=== PATIENT | female | born 1975 | race African-American/Black ===

== ENCOUNTER 2019-11-15 16:16 | Emergency (ER) | payer MEDICARE, SELFPAY ==
[2019-11-15 16:31] VITALS: BP 115/79; PULSE 99; RESP 20; TEMP 36.7; O2SAT 99
--- NOTE | 2019-11-15 16:39 | ED.SKABFB ---
HPI - Skin/Abscess/Foreign Bdy General Chief complaint: Skin/Abscess/Foreign Body Stated complaint: rash Time Seen by Provider: 11/15/19 16:39 Source: patient and RN notes reviewed History of Present Illness HPI narrative: Patient is a 44-year-old female who presents the urgent care with complaints of a painful rash to the left buttocks. Patient states she noticed it approximately 2 days ago and is became very painful. Patient states that she does noticed that her underwear line has been rubbing the area which is caused it to be more painful. Patient has MS and sits for long periods of time, and able to ambulate without assistance. Patient states that she has been under a lot of stress due to her chronic bronchitis and treatment for pneumonia. Patient states that she is recently been on a Z-Cj as well as currently taking Levaquin from her PCP. Patient states her upper respiratory symptoms have improved and she is not currently audibly wheezing. Patient denies of any fever. Denies of using any [id number] treatment to the rash. Patient denies any history of shingles. No other acute complaints. No acute distress noted. Patient read the plan of care. Related Data Home Medications Medication Instructions Recorded Confirmed Myrbetriq 50 mg PO DAILY 06/02/19 06/27/19 Toviaz 4 mg PO DAILY 06/02/19 06/27/19 amitriptyline 100 mg HS 06/02/19 06/27/19 cyclobenzaprine 10 mg TID PRN 06/02/19 06/27/19 trazodone 100 mg PRN PRN 06/02/19 06/27/19 fluticasone propion-salmeterol INHALATION 11/15/19 [Advair HFA] levofloxacin 11/15/19 mirabegron [Myrbetriq] mg PO 11/15/19 omeprazole 11/15/19 Allergies Allergy/AdvReac Type Severity Reaction Status Date / Time No Known Allergies Allergy Mild Verified 07/17/19 09:53 Review of Systems Review of Systems: Narrative: CONSTITUTIONAL: Denies fever, chills, or sweats. EYES: Denies visual changes, redness, or discharge. ENT: Denies rhinorrhea, congestion, sore throat, or otalgia. CARDIOVASCULAR: Denies chest pain, palpitations, or edema. RESPIRATORY: Denies cough or dyspnea. GASTROINTESTINAL: Denies abdominal pain, nausea, vomiting, or diarrhea. GENITOURINARY: Denies dysuria or hematuria. SKIN: Reports of a painful itchy rash to the left buttocks MUSCULOSKELETAL: Denies back pain, joint pain, or myalgia. NEUROLOGIC: Denies headache, numbness, or weakness. All other systems reviewed are negative, except as documented in HPI. [facility] Social History Social History Social History: She lives at home with her son, Yung, whom she designates as her emergency contact. She wishes to be a full code. 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 No alcohol, tobacco, or drug use. Smoking status: Never smoker Alcohol intake: never Substance use: never Gender identity (if verbalized by the patient): Female Spiritual care concerns: No Agree to blood products: Yes Comments At the time of my signature, I reviewed and agree with the nursing past medical, surgical, social, and family history. There is no relevant family history pertinent to the patient complaint. Exam Narrative: Exam Narrative: GENERAL: This is a well-nourished, well-developed patient, in no apparent distress. HEAD: normocephalic, atraumatic. EYES: PERRL. Sclera clear/white. Vision is grossly intact. EARS: External ears normal NOSE: External nose normal with no obvious nasal discharge THROAT: Mucous membranes moist, posterior pharynx clear. NECK: Neck supple RESPIRATORY: Tory wheezes throughout SKIN: Cluster of pustular lesions (6-8) noted to the left buttocks, very painful and sore to touch. warm, intact with no suspicious lesions or rash, good texture and turgor. NEURO: awake, alert, and oriented to person, place and time. There were no obvious focal neurologic abnormalities. Course Vital Signs Vital signs: Vital Signs Temperature 98.0 F 11/15/19 16:3
== END 2019-11-15 17:30 | disposition home or self-care (01) ==
PROVIDERS: Emergency Provider Nurse Practitioner Family
DX: B02.9 Zoster without complications (principal); G35 Multiple sclerosis
CPT/HCPCS: 99213; G0463

== ENCOUNTER 2019-12-11 18:25 | Emergency (ER) | payer MEDICARE, SELFPAY ==
--- NOTE | 2019-12-11 18:30 | ED.GENADULT ---
HPI - General Adult General Chief complaint: Skin/Abscess/Foreign Body Stated complaint: rash on right leg Time Seen by Provider: 12/11/19 18:30 Source: patient Mode of arrival: ambulatory Limitations: no limitations History of Present Illness HPI narrative: 44-year-old female patient presents to the [facility] with complaints of a cluster rash on the right leg that she noticed just a few hours ago. Patient states she actually did not even know she had it and that her brother pointed out. Patient states it was on the back of the right leg. Patient states that she did have an issue about a month or so ago with an issue of shingles outbreak. Patient states that has since resolved. Patient was concerned that this could be another shingles outbreaks. Patient denies any pain, itching. Denies any injury to the leg that she is aware of. Patient does have a history of MS which she does get infusions for typically every 6 months but due to the COVID pandemic she has not had an infusion over 9 months. Patient states that she does fall at times. Related Data Home Medications Medication Instructions Recorded Confirmed Myrbetriq 50 mg PO DAILY 06/02/19 06/27/19 Toviaz 4 mg PO DAILY 06/02/19 06/27/19 amitriptyline 100 mg HS 06/02/19 06/27/19 cyclobenzaprine 10 mg TID PRN 06/02/19 06/27/19 Vitamin D3 12/11/19 ascorbic acid (vitamin C) 12/11/19 cetirizine mg 12/11/19 multivitamin 12/11/19 trazodone 12/11/19 vitamin A 12/11/19 vitamin E 12/11/19 Allergies Allergy/AdvReac Type Severity Reaction Status Date / Time No Known Allergies Allergy Mild Verified 07/17/19 09:53 Review of Systems Review of Systems: Narrative: CONSTITUTIONAL: Denies fever, chills, or sweats. EYES: Denies visual changes, redness, or discharge. ENT: Denies rhinorrhea, congestion, sore throat, or otalgia. CARDIOVASCULAR: Denies chest pain, palpitations, or edema. RESPIRATORY: Denies cough or dyspnea. GASTROINTESTINAL: Denies abdominal pain, nausea, vomiting, or diarrhea. GENITOURINARY: Denies dysuria or hematuria. SKIN: Denies rash or itching. Positive rash to right lower leg MUSCULOSKELETAL: Denies back pain, joint pain, or myalgia. NEUROLOGIC: Denies headache, numbness, or weakness. PSYCHIATRIC: Denies anxiety or depression. [facility] Past Medical History Medical History Bronchitis (~05/2019) GERD (gastroesophageal reflux disease) Mitral valve prolapse Multiple sclerosis She is followed by neurologist associated with [facility], and received injections every 6 months. Pneumonia Urine incontinence Surgical History Surgical History H/O tubal ligation S/P laparoscopic cholecystectomy 06/29/19 Family History Family History Sibling Hypertension Cerebrovascular accident Father Hypertension Cerebrovascular accident Mother Hypertension Social History Social History Social History: She lives at home with her son, Yung, whom she designates as her emergency contact. She wishes to be a full code. 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 No alcohol, tobacco, or drug use. Smoking status: Never smoker Alcohol intake: never Substance use: never Gender identity (if verbalized by the patient): Female Spiritual care concerns: No Agree to blood products: Yes Comments At the time of my signature I agree with nursing past medical history, surgical, social, and family history. There is no relevant family history pertinent to the presenting complaint. Exam Narrative: Exam Narrative: GENERAL: Well-appearing, well-nourished, and in no acute distress. HEAD: Normocephalic, atraumatic. EYES: PERRLA and EOMI. ENT: Nares clear, no rhinorrhea or epistaxis. Mucous membranes moist. NECK: Supple. No ly
[2019-12-11 18:44] VITALS: BP 109/91; PULSE 88; RESP 18; TEMP 37.2; O2SAT 97
== END 2019-12-11 18:58 | disposition home or self-care (01) ==
PROVIDERS: Emergency Provider Nurse Practitioner Family
DX: R21 Rash and other nonspecific skin eruption (principal); G35 Multiple sclerosis
CPT/HCPCS: 99211; G0463

== ENCOUNTER → 2021-08-15 16:15 | Outpatient (CLI) | payer MEDICARE, SELFPAY ==
--- NOTE | ~2021-08-15 | XR_ITS ---
XR chest 2V DATE: 08/15/2021 16:34 INDICATION: Moderate persistent asthma TECHNIQUE: 2 views COMPARISON: 06/26/2019 two-view chest FINDINGS: Normal heart size. No hilar or mediastinal enlargement. No pulmonary infiltrate or consol idation, pulmonary vascular congestion or pleural effusion or pneumothorax. Status post cholecystectomy. IMPRESSION: No active cardiopulmonary disease Reviewed, dictated and finalized at location B. [employer]
== END ==
PROVIDERS: PCP Internal Medicine Pulmonary Disease; Visit Provider Internal Medicine Pulmonary Disease
DX: J45.40 Moderate persistent asthma, uncomplicated (principal); G35 Multiple sclerosis; R53.83 Other fatigue; E66.01 Morbid (severe) obesity due to excess calories; Z68.41 Body mass index [BMI] 40.0-44.9, adult; J30.1 Allergic rhinitis due to pollen; G47.10 Hypersomnia, unspecified; Z90.49 Acquired absence of other specified parts of digestive tract
CPT/HCPCS: 71046

== ENCOUNTER 2022-05-01 17:31 | Emergency (ER) | payer MEDICARE, SELFPAY ==
[2022-05-01 17:35] VITALS: BP 139/76; PULSE 104; RESP 20; TEMP 36.1; O2SAT 100
--- NOTE | 2022-05-01 18:04 | ED.EAR ---
HPI - Ear Problem General Chief complaint: Ear Stated complaint: ear infection Time Seen by Provider: 05/01/22 18:04 Source: patient, RN notes reviewed and old records reviewed Mode of arrival: ambulatory Limitations: no limitations History of Present Illness HPI Narrative: 46-year-old female presents to the [facility] with complaints of sinus pain, pressure, right ear pain and pressure. Patient has had sinus issues for a couple of weeks. Review ear pain since this morning. Has a history of MS. Uses a walker. MD Complaint: ear pain Related Data Home Medications Medication Instructions Recorded Confirmed amitriptyline 100 mg tablet 100 mg HS 06/02/19 05/01/22 cyclobenzaprine 10 mg tablet 10 mg TID PRN Muscle Pain 06/02/19 05/01/22 mirabegron 50 mg tablet,extended 50 mg PO DAILY 06/02/19 05/01/22 release 24 hr (Myrbetriq) cetirizine 10 mg tablet 10 mg PO DAILY 12/11/19 05/01/22 trazodone 100 mg tablet 100 mg PO DAILY 12/11/19 05/01/22 fluticasone fur. 100 mcg-umeclid 1 inh inhalation DAILY 05/01/22 05/01/22 62.5 mcg-vilant 25 mcg inhalat.powder (Trelegy Ellipta) montelukast 10 mg tablet 10 mg PO DAILY 05/01/22 05/01/22 ocrelizumab 30 mg/mL intravenous 600 mg IV [id number] 05/01/22 05/01/22 solution Allergies Allergy/AdvReac Type Severity Reaction Status Date / Time No Known Allergies Allergy Mild Verified 05/01/22 17:41 Review of Systems Review of Systems: All systems reviewed & are unremarkable except as noted in HPI and below Constitutional: Constitutional: Reports no additional constitutional complaints, Denies chills and Denies fever(s) Eyes: Eyes: Reports no additional eye complaints ENT: Reports as per HPI, Denies change in voice, Denies dental pain, Denies vertigo, Denies dizziness, Reports nasal congestion and Denies throat swelling Comments: Ear pain Cardiovascular: Cardiovascular: Reports no additional cardiovascular complaints, Denies chest pain and Denies dyspnea Respiratory: Respiratory: Reports no additional respiratory complaints, Denies cough and Denies dyspnea Gastrointestinal: Gastrointestinal: Reports no additional gastrointestinal complaints, Denies abdominal pain, Denies nausea and Denies vomiting Musculoskeletal: Musculoskeletal: Reports no additional musculoskeletal complaints Integumentary/Breasts: Skin/Breast: Reports system reviewed and no additional complaints, except as docu Neurologic: Reports system reviewed and no additional complaints, except as documented, Denies vertigo and Denies dizziness Psychiatric: Psychiatric: Reports no additional psychiatric complaints Allergic/Immunologic: Allergic/Immunologic: Reports no additional allergic/immunologic complaints and Denies throat swelling PMFSH Past Medical History Medical History (Updated 05/01/22 @ 21:01 by Amara Friedman APRN) Bronchitis (~05/2019) GERD (gastroesophageal reflux disease) Mitral valve prolapse Multiple sclerosis She is followed by neurologist associated with [facility], and received injections every 6 months. Pneumonia Urine incontinence Surgical History Surgical History H/O tubal ligation S/P laparoscopic cholecystectomy 06/29/19 Family History Family History Sibling Hypertension Cerebrovascular accident Father Hypertension Cerebrovascular accident Mother Hypertension Social History Social History Social History: She lives at home with her son, Yung, whom she designates as her emergency contact. She wishes to be a full code. 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 No alcohol, tobacco, or drug use. Smoking status: Never smoker Alcohol intake: never Substance use: never Gender identity (if verbalized by the patient): Female Spiritual care concerns: No Agree to blood products: Yes
== END 2022-05-01 18:24 | disposition home or self-care (01) ==
PROVIDERS: Emergency Provider Nurse Practitioner
DX: J32.9 Chronic sinusitis, unspecified (principal); H92.01 Otalgia, right ear; K21.9 Gastro-esophageal reflux disease without esophagitis; I34.1 Nonrheumatic mitral (valve) prolapse; G35 Multiple sclerosis
CPT/HCPCS: 99213; G0463

== ENCOUNTER 2023-11-15 10:10 | Emergency (ER) | payer MEDICARE, SELFPAY ==
--- NOTE | 2023-11-15 10:14 | ED.URI ---
HPI - URI/Sore Throat General Chief Complaint: Upper Respiratory Infection Stated Complaint: sore throat,cough,stuffy nose Time Seen by Provider: 11/15/23 11:03 Source: patient and RN notes reviewed Mode of arrival: ambulatory Limitations: no limitations History of Present Illness HPI Narrative: 48-year-old female presents with concern for cough, runny nose, stuffy nose for 2-3 days. She reports she has had history of allergies and asthma. MD elicited complaint: cough and sore throat Related Data Home Medications Medication Instructions Recorded Confirmed amitriptyline 100 mg tablet 100 mg HS 06/02/19 11/15/23 cyclobenzaprine 10 mg tablet 10 mg TID PRN Muscle Pain 06/02/19 11/15/23 mirabegron 50 mg tablet,extended 50 mg PO DAILY 06/02/19 11/15/23 release 24 hr (Myrbetriq) cetirizine 10 mg tablet 10 mg PO DAILY 12/11/19 11/15/23 trazodone 100 mg tablet 100 mg PO DAILY 12/11/19 11/15/23 fluticasone fur. 100 mcg-umeclid 1 inh inhalation DAILY 05/01/22 11/15/23 62.5 mcg-vilant 25 mcg inhalat.powder (Trelegy Ellipta) montelukast 10 mg tablet 10 mg PO DAILY 05/01/22 11/15/23 ocrelizumab 30 mg/mL intravenous 600 mg IV [id number] 05/01/22 11/15/23 solution Allergies Allergy/AdvReac Type Severity Reaction Status Date / Time No Known Allergies Allergy Mild Verified 11/15/23 10:31 Review of Systems Review of Systems: CONSTITUTIONAL: Denies malaise, chills, sweats, or fever. EYES: Denies visual changes, redness, or discharge. ENT: Reports rhinorrhea, congestion, and sore throat. CARDIOVASCULAR: Denies chest pain, palpitations, or edema. RESPIRATORY: Reports cough. Denies dyspnea. GASTROINTESTINAL: Denies abdominal pain, nausea, vomiting, diarrhea SKIN: Denies rash or itching. MUSCULOSKELETAL: Denies myalgia. NEUROLOGIC: Denies headache. All systems reviewed & are unremarkable except as noted in HPI and below PMFSH Past Medical History Medical History (Updated 11/15/23 @ 11:13 by Amara Hartley NP) Bronchitis (~05/2019) GERD (gastroesophageal reflux disease) Mitral valve prolapse Multiple sclerosis She is followed by neurologist associated with [facility], and received injections every 6 months. Pneumonia Urine incontinence Surgical History Surgical History H/O tubal ligation S/P laparoscopic cholecystectomy 06/29/19 Family History Family History Sibling Hypertension Cerebrovascular accident Father Hypertension Cerebrovascular accident Mother Hypertension Social History Social History Social History: She lives at home with her son, Yung, whom she designates as her emergency contact. She wishes to be a full code. 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 No alcohol, tobacco, or drug use. Smoking status: Never smoker Alcohol intake: never Substance use: never Gender identity (if verbalized by the patient): Female Spiritual care concerns: No Agree to blood products: Yes Comments At time of signature, agree with nursing past medical, surgical, social and family history. There is no relevant family history pertinent to the presenting complaint Exam Narrative: GENERAL: Well-appearing, well-nourished, and in no acute distress. HEAD: Normocephalic EYES: PERRLA, conjunctivae clear ENT: Nares clear, turbinates edematous and erythematous, clear discharge. Mucous membranes moist. TM pearly bobby with dull light reflex bilaterally; no tragal tenderness. Oropharynx not erythematous without lesions. Tonsils not enlarged and without exudate, no drooling, no hoarseness, no trismus, uvula midline. NECK: Supple. No lymphadenopathy CHEST: Expiratory wheeze throughout, breath sounds equal. No rhonchi, rales, or stridor. No respiratory distress, speaks in full sentences. HEART: Regular rate and rhythm. No murmu
[2023-11-15 10:31] VITALS: BP 131/89; PULSE 93; RESP 16; TEMP 36.5; O2SAT 99
[2023-11-15 10:33] VITALS: BP 131/89; PULSE 93; RESP 16; TEMP 36.5; O2SAT 99
== END 2023-11-15 11:22 | disposition home or self-care (01) ==
PROVIDERS: Emergency Provider Nurse Practitioner
DX: J45.901 Unspecified asthma with (acute) exacerbation (principal); J06.9 Acute upper respiratory infection, unspecified; Z20.822 Contact with and (suspected) exposure to COVID-19; K21.9 Gastro-esophageal reflux disease without esophagitis; I34.1 Nonrheumatic mitral (valve) prolapse; G35 Multiple sclerosis
CPT/HCPCS: 87081; 87426; 87804; 87880; 99213; G0463